=== PATIENT | female | born 1980 | race Caucasian/White ===

== ENCOUNTER 2018-04-11 17:58 | Emergency (ER) | payer SELFPAY ==
[~2018-04-11] VITALS: Ht 175.3 cm; Wt 79.4 kg
[2018-04-11] MEDS ORDERED: ACETAMINOPHEN EXTRA STRENGTH 500 MG TAB ONE (18:38)
--- NOTE | 2018-04-11 19:30 | NUR ---
SEE DOWN TIME PAPER CHARTING.
--- NOTE | 2018-04-11 20:25 | NUR ---
ADMINISTERED MED ORDERS: ZOFRAN 4MG IVP, TORADOL 30 MG IVP, L AC. PER WRITTEN ORDERS BY DR. RODRIGUEZ.
--- NOTE | 2018-04-11 21:05 | NUR ---
PT TO CT VIA WHEELCHAIR BY TECH.
[2018-04-11] MEDS ORDERED: KETOROLAC 30 MG/ML VIAL ONE (21:12)
[2018-04-11] MEDS ORDERED: ONDANSETRON 4 MG/2 ML VIAL ONE (21:13)
--- NOTE | 2018-04-11 21:17 | NUR ---
PT BACK FROM CT.
[2018-04-11] MEDS ORDERED: cefTRIAXone 1,000 MG in LIDOCAINE MPF 1% - 5 mL VIAL 2.1 ML IM ONE (21:35)
[2018-04-11 21:37] LABS: APPEARANCE,URINE SLIGHTLY CLOUDY (CLEAR); BLOOD, URINE 2+ (NEGATIVE); COLOR,URINE YELLOW (YELLOW); UGLUCOSE NEGATIVE (NEGATIVE)
[2018-04-11 21:38] LABS: BILIRUBIN,URINE NEGATIVE (NEGATIVE); LEUKOCYTE ESTERASE ,URINE 2+ (NEGATIVE); NITRITE, URINE POSITIVE (NEGATIVE)
[2018-04-11 21:39] LABS: RBC,URINE 0-5 (RARE) /HPF (0-5)
--- NOTE | 2018-04-11 22:04 | NUR ---
LAB AT BEDSIDE.
[2018-04-11 22:17] LABS: BASOPHILS % (AUTO) 0.5 % (0.0-2.0); HEMOGLOBIN 9.9 g/dL (12.0-16.0); LYMPHOCYTES # (AUTO) 1.6 K/uL (2.5-16.5); LYMPHOCYTES % (AUTO) 19.2 % (20.5-51.1); MEAN CORPUSCULAR HEMOGLOBIN 21 pg (27-31); MEAN CORPUSCULAR HGB CONC 31 g/dL (33-37); MEAN CORPUSCULAR VOLUME 66.6 fL (80-94); MONOCYTES # (AUTO) 0.8 K/uL (0.8-1.0); MONOCYTES % (AUTO) 9.8 % (1.7-9.3); NEUTROPHILS # (AUTO) 5.8 K/uL (1.8-7.7); NEUTROPHILS % (AUTO) 70.5 % (42.2-75.2); PLATELET COUNT (AUTO) 193 K/uL (140-450); RED BLOOD CELL COUNT(AUTO) 4.81 MIL/uL (4.20-5.40); RED CELL DISTRIBUTION WIDTH 19.6 % (11.6-13.7); WHITE BLOOD COUNT (AUTO) 8.2 K/uL (4.8-10.8)
[2018-04-11 22:34] LABS: ANION GAP 14.1 (8-16); CARBON DIOXIDE 25.5 mmol/L (21-32); CREATININE 0.7 mg/dL (0.6-1.3); POTASSIUM 3.6 mmol/L (3.5-5.1)
[2018-04-11 22:39] LABS: ALBUMIN 2.9 g/dL (3.4-5.0); TOTAL BILIRUBIN 0.3 mg/dL (0.0-1.0)
[2018-04-11 23:12] VITALS: BP 101/50
--- NOTE | 2018-04-11 23:14 | NUR ---
Patient discharged with v/s stable. Written and verbal after care instructions given and explained. Patient alert, oriented and verbalized understanding of instructions. Ambulatory with steady gait. All questions addressed prior to discharge. ID band removed. Patient advised to follow up with PMD. Rx of CIPRO, IBU given. Patient educated on indication of medication including possible reaction and side effects. Opportunity to ask questions provided and answered.
== END 2018-04-11 23:12 | disposition home or self-care (01) ==
LOC: MED 17:58
DX: N39.0 Urinary tract infection, site not specified (principal); D64.9 Anemia, unspecified; R11.0 Nausea
CPT/HCPCS: 36415; 74176; 80053; 81001; 85025; 87086; 87186; 87804; 96372; 99284; J0696; J1885; J2001; J2405

== ENCOUNTER 2020-03-31 20:59 | Emergency (ER) | payer OTHER ==
[~2020-03-31] VITALS: Ht 160 cm; Wt 79.4 kg
[2020-03-31 21:08] VITALS: BP 131/54
[2020-03-31] MEDS ORDERED: KETOROLAC 60 MG/2 ML VIAL IM ONE (21:25)
[2020-03-31 21:40] VITALS: BP 131/54
== END 2020-03-31 21:40 | disposition home or self-care (01) ==
LOC: MED 20:59
DX: J02.9 Acute pharyngitis, unspecified (principal); N39.0 Urinary tract infection, site not specified; R05 Cough
CPT/HCPCS: 81002; 96372; 99283; J1885